=== PATIENT | female | born 1945 | race Two or more races ===

== ENCOUNTER 2022-10-04 13:48 | Emergency (ER) | payer OTHER ==
[~2022-10-04] VITALS: Ht 157.5 cm; Wt 61.2 kg
[2022-10-04] MEDS ORDERED: PRAVASTATIN SOD40 MG (14:18)
== END 2022-10-04 21:27 | disposition home or self-care (01) ==
LOC: ER 13:48
DX: R42 Dizziness and giddiness (principal); Z91.041 Radiographic dye allergy status